=== PATIENT | male | born 1940 | race Caucasian/White ===

== ENCOUNTER 2020-04-19 22:10 | Observation (INO) ==
[2020-04-19] MEDS ORDERED: SODIUM CHLORIDE 0.9% 500 ML IV STA (23:36)
[2020-04-20] LABS: Basophils # 0.1 10*3/uL (0.0-0.2); Basophils % 1.3 % (0.0-0.8); Eosinophils # 0.2 10*3/uL (0.0-0.87); Eosinophils % 3.1 % (0.00-10.9); Hemoglobin 14.1 GM/DL (14.0-18.0); Immature Granulocytes % 0.3 %; Immature Granulocytes Absolute 0.02 #; Lymphocytes # 1.8 10*3/uL (1.4-4.0); Lymphocytes % 25.9 % (21.2-54.2); Mean Corpuscular HGB Conc 34.4 GM/DL (32-36); Mean Corpuscular Volume 89.5 FL (87-102); Mean Platelet Volume 9.4 FL (9.6-12.0); Monocytes % 15.8 % (1.7-12.7); Neutrophils % 53.6 % (38.7-73.9); Platelet Count 207 T/CUMM (130-400); Red Blood Count 4.58 MC/CUMM (3.8-5.5); Red Cell Distribution Width 13.3 % (9.3-17.3)
[2020-04-20 00:10] LABS: PT Patient Result 10.9 SECS (9.8-11.9)
[2020-04-20 00:21] LABS: Bilirubin,Urine Negative (Negative); Blood, Urine Large mg/dL (Negative); Glucose,Urine (UA) 50 mg/dL (Negative); Ketones,Urine 5 mg/dL (Negative); Mucus,Urine Moderate /LPF (Occasional); Nitrite,Urine Negative (Negative); Protein,Urine 100 MG/DL; RBC,Urine 21590 /HPF (0-4); Urine Appearance CLOUDY (Clear); Urine Color Red (Yellow); Urine Specific Gravity 1.016 (1.001-1.035); Urine Urobilinogen < 2.0 EU/DL (0.2-1.0); WBC,Urine 7 /HPF (0-6)
[2020-04-20 00:37] LABS: Alanine Aminotransferase 25 U/L (16-61); Albumin 3.8 G/DL (3.4-5.0); Alkaline Phosphatase 59 U/L (45-117); Aspartate Amino Transferase 17 U/L (0-37); Bilirubin,Total < 0.39 MG/DL (0.2-1.0); Blood Urea Nitrogen 22 MG/DL (7-18); Calcium 8.9 MG/DL (8.5-10.1); Eosinophils 4 % (0-10); Estimated Glom Filtration Rate 58 ML/MIN; Glucose 121 MG/DL (74-106); Lymphocytes 27 % (20-55); Osmolality,Calculated 276.8 MOS/KG (273-304); Segmented Neutrophils 62 % (50-85); Total Cells Counted 100; Total Protein 6.7 G/DL (6.4-8.3)
[2020-04-20 00:38] LABS: Microcytosis 1+; Platelet Estimate Normal; Stomatocytes Few
[2020-04-20] MEDS ORDERED: ACETAMINOPHEN 325 MG TABLET PO PRN (04:52)
[2020-04-20] MEDS ORDERED: MORPHINE 4 MG/1 ML VIAL IV PRN (04:52)
[2020-04-20] MEDS ORDERED: ONDANSETRON 4 MG/2 ML VIAL IV PRN (04:52)
[2020-04-20] MEDS: SODIUM CHLORIDE 0.9% 1,000 ML IV SCH ×2 (06:25→19:22)
[2020-04-20] MEDS ORDERED: cefTRIAXone 1,000 MG in SYRINGE 1 EACH IV ONE (06:36)
[2020-04-20] MEDS ORDERED: fentaNYL 100 MCG/2 ML VIAL ONE (06:59)
[2020-04-20] MEDS ORDERED: cefTRIAXone 1,000 MG VIAL ONE (07:32)
[2020-04-20] MEDS ORDERED: SEVOFLURANE 1 UNIT/15 MINUTE INH ONE ×3 (07:36→07:54)
[2020-04-20] MEDS ORDERED: PHENYLEPHRINE 1 MG/10 ML SYRINGE IV ONE (07:36)
[2020-04-20] MEDS ORDERED: ONDANSETRON 4 MG/2 ML VIAL ONE (07:36)
[2020-04-20] MEDS ORDERED: LIDOCAINE 2% 5 ML VIAL ONE (07:36)
[2020-04-20] MEDS ORDERED: ROCURONIUM 50 MG/5 ML VIAL IV ONE (07:36)
[2020-04-20] MEDS ORDERED: propofoL 200 MG/20 ML VIAL IV ONE (07:36)
[2020-04-20] MEDS ORDERED: ePHEDrine 50 MG/ML VIAL ONE (07:44)
[2020-04-20] MEDS ORDERED: SUGAMMADEX 200 MG/2 ML VIAL IV ONE (08:00)
[2020-04-20] MEDS ORDERED: FINASTERIDE 5 MG TABLET PO SCH (09:00)
[2020-04-20] MEDS: DOCUSATE SODIUM 100 MG CAPSULE PO SCH ×3 (09:25→20:58)
[2020-04-20] MEDS: PANTOPRAZOLE 40 MG TABLET PO SCH (09:25)
[2020-04-20] MEDS ORDERED: DUTASTERIDE 0.5 MG CAPSULE PO ONE (23:22)
[2020-04-20] MEDS: DUTASTERIDE 0.5 MG CAPSULE PO SCH (23:33)
[2020-04-21] MEDS: SODIUM CHLORIDE 0.9% 1,000 ML IV SCH ×3 (03:29→12:52)
[2020-04-21 05:46] LABS: Basophils # 0.1 10*3/uL (0.0-0.2); Basophils % 0.6 % (0.0-0.8); Eosinophils # 0.2 10*3/uL (0.0-0.87); Eosinophils % 1.8 % (0.00-10.9); Hematocrit 38.4 VOL% (42.0-52.0); Hemoglobin 13.1 GM/DL (14.0-18.0); Immature Granulocytes % 0.4 %; Immature Granulocytes Absolute 0.04 #; Lymphocytes # 1.3 10*3/uL (1.4-4.0); Lymphocytes % 13.6 % (21.2-54.2); Mean Corpuscular HGB Conc 34.1 GM/DL (32-36); Mean Corpuscular Volume 90.6 FL (87-102); Monocytes % 10.6 % (1.7-12.7); Platelet Count 209 T/CUMM (130-400); Red Blood Count 4.24 MC/CUMM (3.8-5.5); Red Cell Distribution Width 13.2 % (9.3-17.3); White Blood Count 9.3 T/CUMM (4-12)
[2020-04-21 06:44] LABS: Bilirubin,Total 1.2 MG/DL (0.2-1.0); Calcium 8.4 MG/DL (8.5-10.1); Osmolality,Calculated 277.5 MOS/KG (273-304); Total Protein 5.8 G/DL (6.4-8.3)
[2020-04-21] MEDS: DOCUSATE SODIUM 100 MG CAPSULE PO SCH (09:41)
[2020-04-21] MEDS: DUTASTERIDE 0.5 MG CAPSULE PO SCH (09:41)
[2020-04-21] MEDS: PANTOPRAZOLE 40 MG TABLET PO SCH (09:41)
[2020-04-21 12:38] VITALS: BP 146/63
== END 2020-04-21 13:00 | disposition home or self-care (01) ==
LOC: N.EDINP 22:10 → N.ED 22:10 → N.EDINP 04-20 02:44 → N.3E 04-20 04:51
PROVIDERS: ADMIT Family Medicine; ATTEND Family Medicine